=== PATIENT | female | born 1945 | race Hispanic/Latino ===

== ENCOUNTER 2017-06-13 23:13 | Emergency (ER) | payer OTHER, MEDICARE ==
[~2017-06-13 23:13] MED LIST: ALEN70TA2 PO; AMLO5TAB2 PO; ATOR20TA65 PO; CALC-866 PO; DESL5TAB28 PO; DULO60CA44 PO; HYDR12.54 PO; METF500T6 PO; METH-370 PO; PANT40TA25 PO
[2017-06-13 23:39] LABS: BASOPHILS % (AUTO) 0.3 % (0.0-5.0); EOSINOPHILS % (AUTO) 4.2 % (0.0-8.0); HEMATOCRIT 37.8 % (36-48); LYMPHOCYTES % (AUTO) 10.5 % (21.0-51.0); MEAN CORPUSCULAR HEMOGLOBIN 27.4 pg (27.0-33.0); MEAN CORPUSCULAR HGB CONC 33.2 g/dL (32.0-36.0); MEAN CORPUSCULAR VOLUME 82.6 fL (79-99); MONOCYTES % (AUTO) 3.6 % (3.0-13.0); NEUTROPHILS % (AUTO) 81.4 % (40.0-77.0); PLATELET COUNT (AUTO) 269 K/uL (130-400); RED BLOOD CELL COUNT(AUTO) 4.58 MIL/uL (4.00-5.50); RED CELL DISTRIBUTION WIDTH 14.4 % (11.0-15.5); WHITE BLOOD COUNT (AUTO) 10.8 K/uL (4.8-10.8)
[2017-06-13] MEDS ORDERED: ONDANSETRON HCL 4 MG/2 ML VIAL ONE (23:46)
[2017-06-13] MEDS ORDERED: SODIUM CHLORIDE 0.9% 1000ML 2,000 ML IV ONE (23:46)
[2017-06-13 23:54] LABS: CREATININE 0.7 mg/dL (0.5-1.5); POTASSIUM 3.4 mmol/L (3.5-5.1)
[2017-06-13 23:56] LABS: ALBUMIN 3.9 g/dL (3.5-5.0); BILIRUBIN,TOTAL 0.4 mg/dL (0.2-1.0); TOTAL PROTEIN, SERUM 7.6 g/dL (6.0-8.3)
[2017-06-14 00:27] LABS: APPEARANCE,URINE Clear (CLEAR); BILIRUBIN,URINE Negative (NEGATIVE); COLOR,URINE Yellow (YELLOW); GLUCOSE, URINE (UA) Negative (NEGATIVE); KETONES,URINE Negative (NEGATIVE); LEUKOCYTE ESTERASE ,URINE Small (NEGATIVE); NITRATE,URINE Negative (NEGATIVE); OCCULT BLOOD,URINE Negative (NEGATIVE); PROTEIN,URINE Negative (NEGATIVE)
[2017-06-14 00:35] LABS: BACTERIA,URINE None Seen /HPF (None Seen); MUCUS,URINE Moderate LPF (None Seen); SQUAMOUS EPITHELIAL CELL,UR Moderate /LPF (0-2)
[2017-06-14] MEDS ORDERED: FAMOTIDINE/PF 20 MG/2 ML VIAL IV ONE (00:55)
[2017-06-14] MEDS ORDERED: LIDOCAINE HCL 2% VISCOUS 15 ML UDCUP ONE ×2 (00:55→01:49)
[2017-06-14] MEDS ORDERED: MAGNESIUM HYDROXIDE 30 ML/UDCUP ONE ×2 (00:55→01:49)
== END 2017-06-14 02:03 | disposition home or self-care (01) ==
LOC: EDH 23:13
DX: K29.00 Acute gastritis without bleeding (principal); I10 Essential (primary) hypertension; E11.9 Type 2 diabetes mellitus without complications; K21.9 Gastro-esophageal reflux disease without esophagitis; E07.9 Disorder of thyroid, unspecified; Z98.890 Other specified postprocedural states
CPT/HCPCS: 36415; 80053; 81001; 82150; 83690; 84484; 85025; 86677; 93005; 96361; 96374; 96375; 99285; J2405; J3490; J7030

== ENCOUNTER 2017-06-18 19:20 | Emergency (ER) | payer OTHER, MEDICARE ==
[2017-06-18] MEDS ORDERED: GUAIFENESIN SUGAR-FREE 100 MG/5 ML UDCUP ONE (20:34)
== END 2017-06-18 20:55 | disposition home or self-care (01) ==
LOC: EDH 19:20
DX: J06.9 Acute upper respiratory infection, unspecified (principal); I10 Essential (primary) hypertension; E11.9 Type 2 diabetes mellitus without complications; E07.9 Disorder of thyroid, unspecified; E78.5 Hyperlipidemia, unspecified; K21.9 Gastro-esophageal reflux disease without esophagitis; Z90.49 Acquired absence of other specified parts of digestive tract; Z98.890 Other specified postprocedural states
CPT/HCPCS: 71045

== ENCOUNTER → 2017-09-04 | Outpatient (CLI) | payer OTHER, MEDICARE | LOC: RAH 09:41 | PROVIDERS: ATTEND Internal Medicine Gastroenterology | DX: K21.9 Gastro-esophageal reflux disease without esophagitis (principal) | CPT/HCPCS: 78264; A9541 ==

== ENCOUNTER → 2023-03-20 | Outpatient (CLI) | payer OTHER, MEDICARE ==
[~2023-03-20] MED LIST changes: -ALEN70TA2 PO; +ALEN70TA85 PO; +AMLO-257 PO; -AMLO5TAB2 PO; -DESL5TAB28 PO; +DESL5TAB45 PO; -DULO60CA44 PO; +DULO60CA45 PO; +METF-444 PO; -METF500T6 PO; -METH-370 PO; +METH-386 PO; -PANT40TA25 PO; +PANT40TA54 PO
== END | disposition home or self-care (01) ==
LOC: RAH 08:49
PROVIDERS: ATTEND Internal Medicine Gastroenterology
DX: M16.0 Bilateral primary osteoarthritis of hip (principal); R15.9 Full incontinence of feces
CPT/HCPCS: 72170

== ENCOUNTER → 2023-03-29 | Outpatient (CLI) | payer OTHER, MEDICARE | END | disposition home or self-care (01) | LOC: RAH 14:27 | PROVIDERS: ATTEND Internal Medicine Gastroenterology | DX: M47.817 Spondylosis without myelopathy or radiculopathy, lumbosacral region (principal); R15.9 Full incontinence of feces | CPT/HCPCS: 72100; 72220 ==

== ENCOUNTER → 2024-03-06 | Outpatient (CLI) | payer OTHER, MEDICARE | END | disposition home or self-care (01) | LOC: SHCH 07:37 | PROVIDERS: ATTEND Internal Medicine | DX: R07.9 Chest pain, unspecified (principal) | CPT/HCPCS: 93306 ==

== ENCOUNTER → 2024-04-01 | Outpatient (CLI) | payer OTHER, MEDICARE ==
[2024-04-01 12:29] LABS: ALBUMIN 3.9 g/dL (3.5-5.0); BILIRUBIN,TOTAL 0.6 mg/dL (0.2-1.0); CREATININE 0.8 mg/dL (0.5-1.0); POTASSIUM 4.8 mmol/L (3.5-5.1); TOTAL PROTEIN, SERUM 7.4 g/dL (6.0-8.3)
== END | disposition home or self-care (01) ==
LOC: LAB 09:06
PROVIDERS: ATTEND Internal Medicine
DX: R94.31 Abnormal electrocardiogram [ECG] [EKG] (principal); R07.9 Chest pain, unspecified
CPT/HCPCS: 36415; 80053

== ENCOUNTER → 2024-04-08 | Outpatient (CLI) | payer OTHER, MEDICARE ==
[~2024-04-08] MED LIST changes: +IOHEXOL 350 MG/ML 100ML INFUS..BTL IV ONE; +metoPROLOL tartRATE 1 MG/ML 5ML VIAL IV ONE
== END | disposition home or self-care (01) ==
LOC: RAH 09:27
PROVIDERS: ATTEND Internal Medicine
DX: R07.9 Chest pain, unspecified (principal); R94.39 Abnormal result of other cardiovascular function study
CPT/HCPCS: 75574; J3490; Q9967

== ENCOUNTER → 2024-09-23 | Outpatient (CLI) | payer OTHER, MEDICARE ==
[~2024-09-23] MED LIST changes: -IOHEXOL 350 MG/ML 100ML INFUS..BTL IV ONE; +IOHEXOL-350 75 ML VIAL IV ONE; -metoPROLOL tartRATE 1 MG/ML 5ML VIAL IV ONE
--- NOTE | 2024-09-23 12:59 | HMCIMG ---
CT ABDOMEN WITHOUT AND WITH CONTRAST. CT PELVIS WITHOUT AND WITH CONTRAST INDICATION: Periumbilical pain TECHNIQUE: Routine transaxial images at 5 mm slice thickness were obtained prior to the administration of contrast material through the abdomen only, and after the intravenous infusion of 100 mL of Omnipaque 350 through the abdomen and pelvis without adverse effects. Delayed images of the abdomen and pelvis were also obtained. Coronal and sagittal reformatted imaging acquired for interpretation. Oral contrast was administered. CT was performed with one or more of the following dose reduction techniques: Automated exposure control, adjustment of the mA and/or kV according to patient size, or use of iterative reconstruction technique. COMPARISON: 08/15/2023 FINDINGS: ABDOMEN: Heart size is normal. Visible lung bases are clear. The liver is normal in size and smooth in contour without lesions or biliary duct dilation. The spleen is normal in size without lesions. The gallbladder his absent. The pancreas appears normal without pancreatic duct dilation. The adrenal glands appear normal. 1.1 cm simple right renal cyst. Left kidney appears normal. Cortical nephrograms are symmetric and normal in appearance bilaterally. No significant abdominal, retrocrural or retroperitoneal adenopathy noted.No evidence for intra-abdominal free air or organized fluid collection. No aortic aneurysmal dilation or dissection identified. PELVIS: No evidence for free air or organized pelvic fluid collection. No significant pelvic adenopathy detected. Innumerable diverticula along the distal colon. Terminal ileum appears unremarkable. The appendix appears normal. Urinary bladder is nearly empty. Uterus is absent. Visible osseous structures are intact. IMPRESSION: Distal colonic diverticulosis without diverticulitis, colitis, appendicitis, or umbilical hernia. Additional minor findings, postsurgical changes, and pertinent negatives as reported.
== END | disposition home or self-care (01) ==
LOC: RAH 10:53
PROVIDERS: ATTEND Internal Medicine Gastroenterology
DX: K57.30 Diverticulosis of large intestine without perforation or abscess without bleeding (principal); N28.1 Cyst of kidney, acquired; N28.89 Other specified disorders of kidney and ureter; R10.33 Periumbilical pain; Z90.49 Acquired absence of other specified parts of digestive tract; Z90.710 Acquired absence of both cervix and uterus
CPT/HCPCS: 74178; Q9967